=== PATIENT | female | born 1985 | race American Indian/Alaskan Native ===

== ENCOUNTER 2016-07-04 19:15 | Outpatient (CLI) | payer MEDICAID ==
[2016-07-04 23:16] VITALS: BP 109/71
== END 2016-07-04 23:30 | disposition home or self-care (01) ==
LOC: TRG 19:15
PROVIDERS: ATTEND Obstetrics & Gynecology
DX: O47.1 False labor at or after 37 completed weeks of gestation (principal); Z3A.38 38 weeks gestation of pregnancy
CPT/HCPCS: 59025

== ENCOUNTER 2016-07-07 06:47 | Inpatient (IN) | payer MEDICAID ==
[2016-07-07] MEDS ORDERED: XYLOCAINE 2% INFILTRATI ONE ×2 (07:27→10:00)
--- NOTE | 2016-07-07 07:57 | History and Physical Report ---
History of Present Illness Date of examination: 07/07/16 Date of admission: 07/07/16 06:52 History of present illness: Past History : 2 Term Births: 1 Premature Births: 0 Living Children: 1 Para: 1 Mult. Births: 0 Prev : 0 Prev. attempt? 0 Aborta: 0 Elect. Ab: 0 Spont. Ab: 0 Ectopics: 0 # 1 Delivery date: 09/05/2008 Weeks Gestation: 39 labor: no Delivery type: Hours of labor: 8 Anesthesia type: IV Delivery location: [facility] [place] Sex: Female weight: ? Name: Dione Past Medical History: Negative Past Medical History Past Surgical History: Negative Past Surgical History Past Medical History Surgery (Non-double cutter): Negative Past Surgical History Abnormal PAP: negative Uterine Anomaly: negative Social Hx: Daycare worker Patient is single Infection History Hx of STD: gonorrhea Personal hx. of genital herpes: no Partner hx. of genital herpes: no Genetic History Congenital Heart Defect: Mom: no Dad: no Fide Disease: Mom: no Dad: no Thalassemia Mom: no Dad: no Neural Tube Defect Mom: no Dad: no Down's Syndrome Mom: no Dad: no Lizandro-Sachs Mom: no Dad: no Sickle Cell Disease/Trait Mom: yes Dad: no Comments: Patient has trait Hemophilia Mom: no Dad: no Muscular Dystrophy Mom: no Dad: no Cystic Fibrosis Mom: no Dad: no Iván Chorea Mom: no Dad: no Mental Retardation Mom: no Dad: no Fragile X Mom: no Dad: no Other Genetic/Chromosomal Disorder Mom: no Dad: no Child w/other defect Mom: no Dad: no Enviromental Exposures Xray Exposure: no Medication, drug, or alcohol use since LMP: no Chemical/Other Exposure: no Exposure to Cat Liter: no Hx of Parvovirus (Fifth Disease): no Occupational Exposure to Children: daycare Active Medications (reviewed today): PROMETHAZINE HCL 25 MG TABS (PROMETHAZINE HCL) 1 po q 6 hrs prn nausea FORMULA 27-1 MG ORAL TABS ( VIT-FE FUMARATE-FA) 1 po q day as directed Current Allergies (reviewed today): * PENICILLIN (Critical) Past History - Obstetrical History Expected Date of Delivery: 07/18/16 Actual Gestation: 38 Week(s) 3 Day(s) : 2 Medications and Allergies Allergies Allergy/AdvReac Type Severity Reaction Status Date / Time Penicillins Allergy Hives Verified 07/04/16 22:01 Active Meds: Active Medications Oxytocin/Sodium Chloride (Pitocin/Ns 20 Unit/1000ml Drip) 20 units in 1,000 mls @ 250 mls/hr IV DIRECT RAMON Ketorolac Tromethamine (Toradol) 30 mg IV ONCE NR Stop: 07/12/16 07:59 Oxytocin (Pitocin) 10 unit IM ONCE ONE Stop: 07/07/16 08:01 - Vital Signs Vital signs: Vital Signs Pulse BP Pulse Ox 68 146/75 75 L 07/07/16 07:21 07/07/16 07:21 07/07/16 07:21 Temp Pulse Resp BP Pulse Ox 72 119/68 100 07/07/16 07:46 07/07/16 07:38 07/07/16 07:46 - Physical Exam Breasts: Positive: deferred Lungs: Positive: Normal air movement Genitourinary (Female): Positive: other (2nd degree laceration) Results All other labs normal. Assessment and Plan - Patient Problems (1) Precipitous delivery Current Visit: Yes Status: Acute
[2016-07-07] MEDS ORDERED: TORADOL IV NR (08:00)
[2016-07-07] MEDS ORDERED: PITOCin/NS 20 UNIT/1000ML DRIP 20 UNITS/1,000 ML BAG IV SCH ×3 (08:00→10:00)
[2016-07-07] MEDS ORDERED: DERMOPLAST TP PRN (08:30)
[2016-07-07] MEDS ORDERED: ePHEDrine SULFATE IV PRN (08:30)
[2016-07-07] MEDS ORDERED: BENADRYL PO PRN (08:30)
[2016-07-07] MEDS ORDERED: TYLENOL PO PRN (08:30)
[2016-07-07 09:26] LABS: Hematocrit 35.9 % (30.3-42.9); Hemoglobin 11.8 gm/dl (10.1-14.3); Mean Corpuscular HGB Conc 33 % (30-34); Mean Corpuscular Hemoglobin 27 pg (28-32); Mean Corpuscular Volume 82 fl (79-97); Platelet Count 171 K/mm3 (140-440); Red Cell Distribution Width 14.6 % (13.2-15.2); White Blood Count 11.2 K/mm3 (4.5-11.0)
[2016-07-07] MEDS ORDERED: BRETHINE IVP PRN (10:00)
[2016-07-07] MEDS ORDERED: PHENERGAN PR PRN (10:00)
[2016-07-07] MEDS ORDERED: TUCKS PAD TP PRN (10:00)
[2016-07-07] MEDS ORDERED: PHENERGAN PO PRN (10:00)
[2016-07-07] MEDS ORDERED: LACTATED RINGERS 1,000 ML IV SCH (10:00)
[2016-07-07] MEDS ORDERED: SODIUM CHLORIDE FLUSH SYRINGE 10 ML IV PRN (10:00)
[2016-07-07] MEDS ORDERED: LANSINOH TP PRN (10:00)
[2016-07-07] MEDS ORDERED: DULCOLAX PR PRN (10:00)
[2016-07-07] MEDS ORDERED: PITOCin/NS 30 UNIT/500ML 30 UNITS/500 ML BAG IV SCH (10:00)
[2016-07-07] MEDS ORDERED: ZOFRAN IV PRN (10:00)
[2016-07-07] MEDS ORDERED: BRETHINE SUB-Q PRN (10:00)
[2016-07-07] MEDS: MOTRIN PO SCH ×3 (12:00→23:25)
--- NOTE | 2016-07-07 13:36 | Procedure Note ---
OB Delivery Note - Delivery Date of Delivery: 07/07/16 Surgeon: JONES KENDRICK Estimated blood loss: 200cc - Vaginal Intrapartum events: precipitous labor- <3hr Route of delivery: (Patient states contractions started at 353a, she arrived to L&D at 620.) Delivery placenta: spontaneous Delivery laceration: 2nd degree Delivery repair: vicryl (usu fashion) Anesthesia: local - A at 1 minute: 8 at 5 minutes: 8 Gender: Male (7#6)
[2016-07-07 20:25] LABS: Hematocrit 32.3 % (30.3-42.9); Hemoglobin 10.7 gm/dl (10.1-14.3)
[2016-07-07] MEDS ORDERED: MILK OF MAGNESIA PO PRN (22:00)
[2016-07-07] MEDS ORDERED: MINERAL OIL PO PRN (22:00)
[2016-07-08] MEDS: MOTRIN PO SCH ×2 (05:20→12:16)
[2016-07-08] MEDS ORDERED: BOOSTRIX IM ONE (06:00)
--- NOTE | 2016-07-08 11:39 | Discharge Summary ---
Providers - Providers Date of Admission: 07/07/16 06:52 Date of discharge: 07/08/16 Attending physician: ALIZA JONES Primary care physician: ALIZA JONES Hospitalization Reason for admission: active labor, other Delivery: (precipitous, 2nd degree lac repaired) Episiotomy: none Laceration: 2nd degree Other procedures: none complications: none Discharge diagnosis: IUP at term delivered baby: male Pertinent studies: d/c hct 32 Hospital course: Came in and had preciptous delivery with second degree lac, repaired in routinue fashion, did well pp Condition at discharge: Good Disposition: DISCHARGED TO HOME OR SELFCARE - Discharge Diagnoses (1) Vaginal delivery Status: Acute Plan - Discharge Medications Prescriptions: Ibuprofen [Motrin 600 MG tab] 600 mg PO Q8H PRN #30 tablet PRN Reason: Pain Lidocain2.5%/Prilocai2.5% [Emla] 5 gm TP ONCE #1 tube - Provider Discharge Summary Activity: no sex for 6 weeks, no heavy lifting 4 weeks, no strenuous exercise Diet: routine Additional instructions: [] Smoking cessation referral if applicable(refer to patient education folder for contact #) [] Refer to [facility] Booklet Call your doctor immediately for: * Fever > 100.5 * Heavy vaginal bleeding ( >1 pad per hour) * Severe persistent headache * Shortness of breath * Reddened, hot, painful area to leg or breast * Drainage or odor from incision. * Keep incision clean and dry at all times and follow doctor's instructions regarding bathing/showering - Follow up plan Follow up: ALIZA JONES MD [Primary Care Provider] - 7 Days
[2016-07-08] MEDS ORDERED: FLUARIX QUAD 2016-2017(36 MOS+) IM ONE (12:00)
[2016-07-08 17:04] VITALS: BP 114/74
== END 2016-07-08 15:45 | disposition home or self-care (01) | DRG 775 ==
LOC: TRG 06:47 → LD 06:52 → OB 10:53
PROVIDERS: ADMIT Obstetrics & Gynecology; ATTEND Obstetrics & Gynecology
PROC: 10E0XZZ Delivery of Products of Conception, External Approach (ICD-10-PCS; principal; 2016-07-07)
PROC: 0KQM0ZZ Repair Perineum Muscle, Open Approach (ICD-10-PCS; 2016-07-07)
DX: O62.3 Precipitate labor (principal); Z37.0 Single live birth; O70.1 Second degree perineal laceration during delivery; Z3A.35 35 weeks gestation of pregnancy
CPT/HCPCS: 36415; 85014; 85018; 85027; 86592; 86850; 86900; 86901; 90471; 90686; 90715; 99211; A6250; G0463; J1885; J2590